=== PATIENT | male | born 1960 | race American Indian/Alaskan Native ===

== ENCOUNTER 2018-03-12 19:20 | Emergency (ER) | payer BC ==
[~2018-03-12] VITALS: Ht 167.6 cm; Wt 77.1 kg
[2018-03-12 19:31] VITALS: BP_SYST 147
[2018-03-12] MEDS ORDERED: IBUPROFEN 600 MG TABLET PO ONE (20:30)
[2018-03-12 20:43] VITALS: BP_SYST 141
== END 2018-03-12 20:43 | disposition home or self-care (01) ==
LOC: SED 19:20
DX: S80.01XA Contusion of right knee, initial encounter (principal); W10.8XXA Fall (on) (from) other stairs and steps, initial encounter; Y93.89 Activity, other specified; Y92.098 Other place in other non-institutional residence as the place of occurrence of the external cause; Y99.8 Other external cause status
CPT/HCPCS: 73564; 99284